=== PATIENT | male | born 1950 | race Caucasian/White ===

== ENCOUNTER → 2017-10-23 | Outpatient (CLI) | payer OTHER ==
[~2017-10-23] VITALS: Ht 180.3 cm; Wt 127.3 kg
[~2017-10-23] MED LIST: ASPIRIN E.C. 8181 MG PO; LIPITOR20 MG PO; OXYCONTIN 10MG10 MG PO; RELAFEN750 MG PO; ROXICODONE 55 MG/TAB PO; RT ADVAIR 228 DISKUS IH; ZESTRIL 10MG10 MG PO
[2017-10-23 12:28] VITALS: BP 130/76; PULSE 93
[2017-10-23 14:25] VITALS: BP 122/77; PULSE 78
[2017-10-23 14:35] VITALS: BP 120/76; PULSE 75
[2017-10-23 14:50] VITALS: BP 123/78; BP 127/79; PULSE 76
== END ==
LOC: COL.RAD 12:03
DX: M87.851 Other osteonecrosis, right femur (principal); M87.852 Other osteonecrosis, left femur; F40.240 Claustrophobia; M48.061 Spinal stenosis, lumbar region without neurogenic claudication; M99.73 Connective tissue and disc stenosis of intervertebral foramina of lumbar region
CPT/HCPCS: G9654; J2704; J7120